=== PATIENT | female | born 1985 | race American Indian/Alaskan Native ===

== ENCOUNTER 2020-01-28 15:31 | Emergency (ER) | payer OTHER ==
--- NOTE | 2020-01-28 16:15 | Emergency Department Report ---
Chief Complaint: Upper Respiratory Infection Stated Complaint: COUGHING UP BLOOD/CHEST TIGHNESS Time Seen by Provider: 01/28/20 16:11 - HPI History of Present Illness: bronchitis viral one day of nausea, clear sputum streaked with blood MSE dc MSE screening note: Focused history and physical exam performed. Due to findings the following was ordered: ED Disposition for MSE Clinical Impression: Encounter for medical screening examination Disposition: MED SCREENING EXAM-LEFT Condition: Stable Forms: Work/School Release Form(ED)
[2020-01-28 16:26] VITALS: BP 153/95
== END 2020-01-28 16:38 | disposition left against medical advice (07) ==
LOC: ED 15:31
DX: R05 Cough (principal); R07.89 Other chest pain
CPT/HCPCS: 99282